=== PATIENT | male | born 1975 | race Two or more races ===

== ENCOUNTER 2022-11-16 17:27 | Inpatient (IN) | payer OTHER ==
[2022-11-16 20:27] VITALS: BMI 27.8
[2022-11-16] MEDS ORDERED: IBUPROFEN 400 MG TABLET (FP) PO PRN (20:55)
[2022-11-16] MEDS ORDERED: IBUPROFEN 600 MG TABLET (FP) PO PRN (20:55)
[2022-11-16] MEDS ORDERED: BENZOCAINE/MENTHOL (CHLORASEPTIC ) LOZENGE MM PRN (20:55)
[2022-11-16] MEDS ORDERED: BENZONATATE 200 MG CAPSULE PO PRN (20:55)
[2022-11-16] MEDS ORDERED: guaiFENesin 600 MG TABLET.ER (FP) PO PRN (20:55)
[2022-11-16] MEDS ORDERED: ACETAMINOPHEN 325 MG TABLET (FP) PO PRN (20:55)
[2022-11-16] MEDS ORDERED: MAG HYDROX/AL HYDROX/SIMETH 30 ML UNIT-DOSE CUP PO PRN (20:55)
[2022-11-16] MEDS ORDERED: DICYCLOMINE HCL 10 MG CAPSULE PO PRN (20:55)
[2022-11-16] MEDS ORDERED: BISMUTH SUBSALICYLATE 524 MG/30 ML PO PRN (20:55)
[2022-11-16] MEDS ORDERED: ONDANSETRON *ODT* 4 MG TABLET SL PRN (20:55)
[2022-11-16] MEDS ORDERED: LOPERAMIDE HCL 2 MG CAPSULE PO PRN (20:55)
[2022-11-16] MEDS ORDERED: POLYETHYLENE GLYCOL (HEALTHYLAX) 3350 17 GM PACKET PO PRN (20:55)
[2022-11-16] MEDS ORDERED: MAGNESIUM HYDROX 2400MG/30ML ORAL SUSPENSION 30 ML CUP PO PRN (20:55)
[2022-11-16] MEDS: MELATONIN 5 MG TABLETS PO SCH (23:29)
[2022-11-16] MEDS: THIAMINE HCL 100 MG TABLET (FP) PO SCH (23:29)
[2022-11-17] MEDS ORDERED: chlordiazePOXIDE HCL 25 MG CAPSULE PO PRN (09:20)
[2022-11-17] MEDS: hydrOXYzine PAMOATE 25 MG CAPSULE (FP) PO PRN (10:24)
[2022-11-17] MEDS: METHOCARBAMOL 500 MG TABLET PO PRN (10:24)
[2022-11-17] MEDS: chlordiazePOXIDE HCL 25 MG CAPSULE PO SCH ×3 (10:24→22:16)
[2022-11-17] MEDS: PRENATAL VITAMINS W/ FOLIC ACID TABLET (FP) PO SCH (10:24)
[2022-11-17] MEDS: THIAMINE HCL 100 MG TABLET (FP) PO SCH (22:16)
[2022-11-17] MEDS: MELATONIN 5 MG TABLETS PO SCH (22:16)
[2022-11-17] MEDS: QUEtiapine FUMARATE 50 MG TABLET PO SCH (22:17)
[2022-11-18] MEDS: chlordiazePOXIDE HCL 25 MG CAPSULE PO SCH ×4 (05:28→22:26)
[2022-11-18] MEDS: PRENATAL VITAMINS W/ FOLIC ACID TABLET (FP) PO SCH (10:28)
[2022-11-18 13:21] LABS: HEMATOCRIT 47.6 % (35.4-49); HEMOGLOBIN 16.6 GM/dL (11.7-16.9); MCH 33.8 pg (25.7-33.7); MCHC 34.8 g/dl (32.0-35.9); MEAN CELL VOLUME 97.3 fl (80-96); MEAN PLT VOLUME 7.7 fl (7.5-11.1); PLATELET COUNT 337 10^3/uL (134-434); RDW 12.4 % (11.9-15.9); WHITE BLOOD COUNT 7.8 K/mm3 (4.0-10.0)
[2022-11-18 13:37] LABS: BLOOD UREA NITROGEN 9.5 mg/dL (7-18); CALCIUM 8.7 mg/dL (8.5-10.1)
[2022-11-18 13:38] LABS: ALBUMIN 3.6 g/dl (3.4-5.0)
[2022-11-18 13:41] LABS: CREATININE 0.8 mg/dL (0.55-1.3)
[2022-11-18 13:42] LABS: BILIRUBIN,TOTAL 0.6 mg/dL (0.2-1)
[2022-11-18] MEDS: hydrOXYzine PAMOATE 25 MG CAPSULE (FP) PO PRN (22:25)
[2022-11-18] MEDS: MELATONIN 5 MG TABLETS PO SCH (22:25)
[2022-11-18] MEDS: THIAMINE HCL 100 MG TABLET (FP) PO SCH (22:25)
[2022-11-18] MEDS: QUEtiapine FUMARATE 50 MG TABLET PO SCH (22:26)
[2022-11-19] MEDS: chlordiazePOXIDE HCL 25 MG CAPSULE PO SCH ×4 (05:27→22:34)
[2022-11-19] MEDS: METHOCARBAMOL 500 MG TABLET PO PRN (10:18)
[2022-11-19] MEDS: PRENATAL VITAMINS W/ FOLIC ACID TABLET (FP) PO SCH (10:18)
[2022-11-19] MEDS: hydrOXYzine PAMOATE 25 MG CAPSULE (FP) PO PRN (10:19)
[2022-11-19] MEDS: QUEtiapine FUMARATE 50 MG TABLET PO SCH (22:34)
[2022-11-19] MEDS: THIAMINE HCL 100 MG TABLET (FP) PO SCH (22:34)
[2022-11-19] MEDS: MELATONIN 5 MG TABLETS PO SCH (22:34)
[2022-11-20] MEDS ORDERED: chlordiazePOXIDE HCL 10 MG CAPSULE PO PRN
[2022-11-20] MEDS: chlordiazePOXIDE HCL 10 MG CAPSULE PO SCH ×4 (05:41→22:20)
[2022-11-20] MEDS: METHOCARBAMOL 500 MG TABLET PO PRN (10:39)
[2022-11-20] MEDS: PRENATAL VITAMINS W/ FOLIC ACID TABLET (FP) PO SCH (10:39)
[2022-11-20] MEDS: hydrOXYzine PAMOATE 25 MG CAPSULE (FP) PO PRN (10:40)
[2022-11-20] MEDS: THIAMINE HCL 100 MG TABLET (FP) PO SCH (22:20)
[2022-11-20] MEDS: QUEtiapine FUMARATE 50 MG TABLET PO SCH (22:20)
[2022-11-20] MEDS: MELATONIN 5 MG TABLETS PO SCH (22:20)
[2022-11-21] MEDS: chlordiazePOXIDE HCL 10 MG CAPSULE PO SCH ×2 (05:23→17:29)
[2022-11-21 06:22] VITALS: RESP 18
[2022-11-21] MEDS: PRENATAL VITAMINS W/ FOLIC ACID TABLET (FP) PO SCH (10:13)
[2022-11-21] MEDS: hydrOXYzine PAMOATE 25 MG CAPSULE (FP) PO PRN ×2 (10:13→22:08)
[2022-11-21] MEDS: METHOCARBAMOL 500 MG TABLET PO PRN (10:13)
[2022-11-21] MEDS: MELATONIN 5 MG TABLETS PO SCH (22:08)
[2022-11-21] MEDS: QUEtiapine FUMARATE 50 MG TABLET PO SCH (22:08)
[2022-11-21] MEDS: THIAMINE HCL 100 MG TABLET (FP) PO SCH (22:08)
[2022-11-22] MEDS ORDERED: chlordiazePOXIDE HCL 10 MG CAPSULE PO ONE (05:00)
[2022-11-22] MEDS: PRENATAL VITAMINS W/ FOLIC ACID TABLET (FP) PO SCH (10:22)
[2022-11-22 13:12] VITALS: BP 131/68; PULSE 97; TEMP 98.1
== END 2022-11-22 13:45 | disposition other institution (70) | DRG 775 ==
LOC: YASAS 17:27 → Y6N 22:39 → UNDOADMIN 22:39
PROVIDERS: ADMIT Allergy & Immunology; ATTEND Surgery
PROC: HZ2ZZZZ Detoxification Services for Substance Abuse Treatment (ICD-10-PCS; principal; 2022-11-16)
DX: F10.230 Alcohol dependence with withdrawal, uncomplicated (principal); F10.282 Alcohol dependence with alcohol-induced sleep disorder; F10.24 Alcohol dependence with alcohol-induced mood disorder; F41.9 Anxiety disorder, unspecified; F32.A Depression, unspecified; Z87.891 Personal history of nicotine dependence; Z56.0 Unemployment, unspecified
CPT/HCPCS: 36415; 80053; 85027; 86780; 87811; C9803-CS; U0003; U0005

== ENCOUNTER 2022-11-22 13:32 | Inpatient (IN) | payer OTHER ==
[2022-11-22] MEDS ORDERED: IBUPROFEN 400 MG TABLET (FP) PO PRN (14:29)
[2022-11-22] MEDS ORDERED: MAGNESIUM HYDROX 2400MG/30ML ORAL SUSPENSION 30 ML CUP PO PRN (14:29)
[2022-11-22] MEDS ORDERED: MAG HYDROX/AL HYDROX/SIMETH 30 ML UNIT-DOSE CUP PO PRN (14:29)
[2022-11-22] MEDS ORDERED: NALOXONE HCL 0.4 MG/ML VIAL IVPUSH PRN (14:29)
[2022-11-22] MEDS ORDERED: IBUPROFEN 600 MG TABLET (FP) PO PRN (14:29)
[2022-11-22] MEDS ORDERED: LOPERAMIDE HCL 2 MG CAPSULE PO PRN (14:29)
[2022-11-22] MEDS ORDERED: NICOTINE 10 MG CARTRIDGE (INHALER) IH PRN (14:29)
[2022-11-22] MEDS ORDERED: NALOXONE HCL (KLOXXADO) 8 MG SPRAY NS PRN (14:29)
[2022-11-22] MEDS ORDERED: BENZOCAINE/MENTHOL (CHLORASEPTIC ) LOZENGE MM PRN (14:29)
[2022-11-22] MEDS ORDERED: ACETAMINOPHEN 325 MG TABLET (FP) PO PRN (14:29)
[2022-11-22] MEDS ORDERED: guaiFENesin 600 MG TABLET.ER (FP) PO PRN (14:29)
[2022-11-22] MEDS ORDERED: POLYETHYLENE GLYCOL (HEALTHYLAX) 3350 17 GM PACKET PO PRN (14:29)
[2022-11-22] MEDS ORDERED: BENZONATATE 200 MG CAPSULE PO PRN (14:29)
[2022-11-22] MEDS: MELATONIN 5 MG TABLETS PO SCH (21:17)
[2022-11-22] MEDS: risperiDONE 2 MG TABLET PO SCH (21:17)
[2022-11-22] MEDS: THIAMINE HCL 100 MG TABLET (FP) PO SCH (21:17)
[2022-11-22] MEDS ORDERED: QUEtiapine FUMARATE 50 MG TABLET PO SCH (22:00)
[2022-11-23] MEDS: risperiDONE 2 MG TABLET PO SCH ×2 (09:54→21:22)
[2022-11-23] MEDS: PRENATAL VITAMINS W/ FOLIC ACID TABLET (FP) PO SCH (09:54)
[2022-11-23] MEDS: METHOCARBAMOL 500 MG TABLET PO PRN (21:22)
[2022-11-23] MEDS: MELATONIN 5 MG TABLETS PO SCH (21:22)
[2022-11-23] MEDS: hydrOXYzine PAMOATE 25 MG CAPSULE (FP) PO PRN (21:22)
[2022-11-23] MEDS: THIAMINE HCL 100 MG TABLET (FP) PO SCH (21:22)
[2022-11-23] MEDS: QUEtiapine FUMARATE 50 MG TABLET PO SCH (21:23)
[2022-11-24] MEDS: risperiDONE 2 MG TABLET PO SCH ×2 (09:46→21:08)
[2022-11-24] MEDS: PRENATAL VITAMINS W/ FOLIC ACID TABLET (FP) PO SCH (09:47)
[2022-11-24] MEDS ORDERED: TUBERCULIN PPD 5 TU/0.1ML VIAL ID ONE (17:59)
[2022-11-24] MEDS: MELATONIN 5 MG TABLETS PO SCH (21:08)
[2022-11-24] MEDS: THIAMINE HCL 100 MG TABLET (FP) PO SCH (21:08)
[2022-11-24] MEDS: hydrOXYzine PAMOATE 25 MG CAPSULE (FP) PO PRN (21:08)
[2022-11-24] MEDS: METHOCARBAMOL 500 MG TABLET PO PRN (21:08)
[2022-11-24] MEDS: QUEtiapine FUMARATE 50 MG TABLET PO SCH (21:08)
[2022-11-25] MEDS: risperiDONE 2 MG TABLET PO SCH ×2 (10:18→21:22)
[2022-11-25] MEDS: PRENATAL VITAMINS W/ FOLIC ACID TABLET (FP) PO SCH (10:18)
[2022-11-25] MEDS: MELATONIN 5 MG TABLETS PO SCH (21:21)
[2022-11-25] MEDS: THIAMINE HCL 100 MG TABLET (FP) PO SCH (21:21)
[2022-11-25] MEDS: QUEtiapine FUMARATE 50 MG TABLET PO SCH (21:22)
[2022-11-25] MEDS: METHOCARBAMOL 500 MG TABLET PO PRN (21:22)
[2022-11-26] MEDS: PRENATAL VITAMINS W/ FOLIC ACID TABLET (FP) PO SCH (09:55)
[2022-11-26] MEDS: risperiDONE 2 MG TABLET PO SCH ×2 (09:55→21:18)
[2022-11-26] MEDS: THIAMINE HCL 100 MG TABLET (FP) PO SCH (21:17)
[2022-11-26] MEDS: MELATONIN 5 MG TABLETS PO SCH (21:17)
[2022-11-26] MEDS: QUEtiapine FUMARATE 50 MG TABLET PO SCH (21:18)
[2022-11-27] MEDS: risperiDONE 2 MG TABLET PO SCH ×2 (09:48→21:04)
[2022-11-27] MEDS: PRENATAL VITAMINS W/ FOLIC ACID TABLET (FP) PO SCH (09:48)
[2022-11-27] MEDS: MELATONIN 5 MG TABLETS PO SCH (21:04)
[2022-11-27] MEDS: QUEtiapine FUMARATE 50 MG TABLET PO SCH (21:04)
[2022-11-27] MEDS: METHOCARBAMOL 500 MG TABLET PO PRN (21:04)
[2022-11-27] MEDS: hydrOXYzine PAMOATE 25 MG CAPSULE (FP) PO PRN (21:04)
[2022-11-27] MEDS: THIAMINE HCL 100 MG TABLET (FP) PO SCH (21:04)
[2022-11-28] MEDS: risperiDONE 2 MG TABLET PO SCH ×2 (09:29→21:17)
[2022-11-28] MEDS: PRENATAL VITAMINS W/ FOLIC ACID TABLET (FP) PO SCH (09:29)
[2022-11-28] MEDS: THIAMINE HCL 100 MG TABLET (FP) PO SCH (21:17)
[2022-11-28] MEDS: QUEtiapine FUMARATE 50 MG TABLET PO SCH (21:17)
[2022-11-28] MEDS: MELATONIN 5 MG TABLETS PO SCH (21:17)
[2022-11-28] MEDS: hydrOXYzine PAMOATE 25 MG CAPSULE (FP) PO PRN (21:17)
[2022-11-29] MEDS: risperiDONE 2 MG TABLET PO SCH ×2 (09:34→21:25)
[2022-11-29] MEDS: PRENATAL VITAMINS W/ FOLIC ACID TABLET (FP) PO SCH (09:34)
[2022-11-29] MEDS ORDERED: QUEtiapine FUMARATE 25 MG TABLET ONE (19:26)
[2022-11-29] MEDS: hydrOXYzine PAMOATE 25 MG CAPSULE (FP) PO PRN (21:24)
[2022-11-29] MEDS: QUEtiapine FUMARATE 50 MG TABLET PO SCH (21:25)
[2022-11-29] MEDS: MELATONIN 5 MG TABLETS PO SCH (21:25)
[2022-11-29] MEDS: THIAMINE HCL 100 MG TABLET (FP) PO SCH (21:25)
[2022-11-30] MEDS: risperiDONE 2 MG TABLET PO SCH ×2 (09:41→21:12)
[2022-11-30] MEDS: PRENATAL VITAMINS W/ FOLIC ACID TABLET (FP) PO SCH (09:41)
[2022-11-30] MEDS: THIAMINE HCL 100 MG TABLET (FP) PO SCH (21:11)
[2022-11-30] MEDS: MELATONIN 5 MG TABLETS PO SCH (21:11)
[2022-11-30] MEDS: hydrOXYzine PAMOATE 25 MG CAPSULE (FP) PO PRN (21:12)
[2022-11-30] MEDS: QUEtiapine FUMARATE 50 MG TABLET PO SCH (21:12)
[2022-12-01] MEDS: PRENATAL VITAMINS W/ FOLIC ACID TABLET (FP) PO SCH (09:43)
[2022-12-01] MEDS: risperiDONE 2 MG TABLET PO SCH ×2 (09:44→21:28)
[2022-12-01] MEDS: MELATONIN 5 MG TABLETS PO SCH (21:28)
[2022-12-01] MEDS: THIAMINE HCL 100 MG TABLET (FP) PO SCH (21:28)
[2022-12-01] MEDS: QUEtiapine FUMARATE 50 MG TABLET PO SCH (21:28)
[2022-12-02] MEDS: risperiDONE 2 MG TABLET PO SCH ×2 (09:18→21:03)
[2022-12-02] MEDS: PRENATAL VITAMINS W/ FOLIC ACID TABLET (FP) PO SCH (09:18)
[2022-12-02] MEDS: THIAMINE HCL 100 MG TABLET (FP) PO SCH (21:03)
[2022-12-02] MEDS: MELATONIN 5 MG TABLETS PO SCH (21:03)
[2022-12-02] MEDS: QUEtiapine FUMARATE 50 MG TABLET PO SCH (21:03)
[2022-12-03] MEDS: risperiDONE 2 MG TABLET PO SCH ×2 (09:29→21:06)
[2022-12-03] MEDS: PRENATAL VITAMINS W/ FOLIC ACID TABLET (FP) PO SCH (09:29)
[2022-12-03] MEDS: QUEtiapine FUMARATE 50 MG TABLET PO SCH (21:06)
[2022-12-03] MEDS: THIAMINE HCL 100 MG TABLET (FP) PO SCH (21:06)
[2022-12-03] MEDS: MELATONIN 5 MG TABLETS PO SCH (21:06)
[2022-12-04] MEDS: risperiDONE 2 MG TABLET PO SCH ×2 (10:11→21:25)
[2022-12-04] MEDS: PRENATAL VITAMINS W/ FOLIC ACID TABLET (FP) PO SCH (10:11)
[2022-12-04] MEDS: QUEtiapine FUMARATE 50 MG TABLET PO SCH (21:25)
[2022-12-04] MEDS: MELATONIN 5 MG TABLETS PO SCH (21:25)
[2022-12-04] MEDS: THIAMINE HCL 100 MG TABLET (FP) PO SCH (21:25)
[2022-12-04] MEDS: hydrOXYzine PAMOATE 25 MG CAPSULE (FP) PO PRN (21:25)
[2022-12-05 07:07] VITALS: BP 102/63; PULSE 88; RESP 18; TEMP 97.9
[2022-12-05] MEDS: PRENATAL VITAMINS W/ FOLIC ACID TABLET (FP) PO SCH (09:21)
[2022-12-05] MEDS: risperiDONE 2 MG TABLET PO SCH (09:21)
== END 2022-12-05 11:35 | disposition home or self-care (01) | DRG 772 ==
LOC: YASAS 13:32 → Y3E 13:34
PROVIDERS: ADMIT Allergy & Immunology; ATTEND Psychiatry & Neurology Pain Medicine
PROC: HZ42ZZZ Group Counseling for Substance Abuse Treatment, Cognitive-Behavioral (ICD-10-PCS; principal; 2022-11-22)
DX: F10.20 Alcohol dependence, uncomplicated (principal); F32.A Depression, unspecified
CPT/HCPCS: 36415; 86803

== ENCOUNTER 2022-12-18 20:34 | Inpatient (IN) | payer OTHER ==
[2022-12-18 22:14] VITALS: BMI 26.4
[2022-12-19] MEDS ORDERED: POLYETHYLENE GLYCOL (HEALTHYLAX) 3350 17 GM PACKET PO PRN (01:33)
[2022-12-19] MEDS ORDERED: DICYCLOMINE HCL 10 MG CAPSULE PO PRN (01:33)
[2022-12-19] MEDS ORDERED: ACETAMINOPHEN 325 MG TABLET (FP) PO PRN (01:33)
[2022-12-19] MEDS ORDERED: BENZOCAINE/MENTHOL (CHLORASEPTIC ) LOZENGE MM PRN (01:33)
[2022-12-19] MEDS ORDERED: LOPERAMIDE HCL 2 MG CAPSULE PO PRN (01:33)
[2022-12-19] MEDS ORDERED: ONDANSETRON *ODT* 4 MG TABLET SL PRN (01:33)
[2022-12-19] MEDS ORDERED: MAGNESIUM HYDROX 2400MG/30ML ORAL SUSPENSION 30 ML CUP PO PRN (01:33)
[2022-12-19] MEDS ORDERED: hydrOXYzine PAMOATE 25 MG CAPSULE (FP) PO PRN (01:33)
[2022-12-19] MEDS ORDERED: BENZONATATE 200 MG CAPSULE PO PRN (01:33)
[2022-12-19] MEDS ORDERED: BISMUTH SUBSALICYLATE 524 MG/30 ML PO PRN (01:33)
[2022-12-19] MEDS ORDERED: IBUPROFEN 400 MG TABLET (FP) PO PRN (01:33)
[2022-12-19] MEDS ORDERED: MAG HYDROX/AL HYDROX/SIMETH 30 ML UNIT-DOSE CUP PO PRN (01:33)
[2022-12-19] MEDS ORDERED: NALOXONE HCL 0.4 MG/ML VIAL IM PRN (01:33)
[2022-12-19] MEDS ORDERED: METHOCARBAMOL 500 MG TABLET PO PRN (01:33)
[2022-12-19] MEDS ORDERED: guaiFENesin 600 MG TABLET.ER (FP) PO PRN (01:33)
[2022-12-19] MEDS ORDERED: NALOXONE HCL (KLOXXADO) 8 MG SPRAY NS PRN (01:33)
[2022-12-19] MEDS ORDERED: NICOTINE 10 MG CARTRIDGE (INHALER) IH PRN (01:33)
[2022-12-19] MEDS ORDERED: IBUPROFEN 600 MG TABLET (FP) PO PRN (01:33)
[2022-12-19] MEDS: PRENATAL VITAMINS W/ FOLIC ACID TABLET (FP) PO SCH (10:17)
[2022-12-19] MEDS ORDERED: THIAMINE HCL 100 MG TABLET (FP) PO SCH (22:00)
[2022-12-19] MEDS ORDERED: MELATONIN 5 MG TABLETS PO SCH (22:00)
[2022-12-19] MEDS: risperiDONE 1 MG TABLET PO SCH (23:13)
[2022-12-20 06:38] VITALS: BP 112/73; PULSE 85; RESP 16; TEMP 97.8
[2022-12-20] MEDS: risperiDONE 1 MG TABLET PO SCH (10:43)
[2022-12-20] MEDS: PRENATAL VITAMINS W/ FOLIC ACID TABLET (FP) PO SCH (10:43)
[2022-12-20 11:03] LABS: POTASSIUM 4.9 mmol/L (3.5-5.1)
[2022-12-20 11:05] LABS: BLOOD UREA NITROGEN 9.2 mg/dL (7-18); CALCIUM 9.1 mg/dL (8.5-10.1)
[2022-12-20 11:06] LABS: ALBUMIN 3.7 g/dl (3.4-5.0)
[2022-12-20 11:08] LABS: CREATININE 0.8 mg/dL (0.55-1.3)
[2022-12-20 11:10] LABS: BILIRUBIN,TOTAL 0.7 mg/dL (0.2-1); TOT PROT 7.5 g/dl (6.4-8.2)
[2022-12-20 11:17] LABS: MCH 32.6 pg (25.7-33.7); MCHC 34.8 g/dl (32.0-35.9); MEAN CELL VOLUME 93.9 fl (80-96); MEAN PLT VOLUME 7.2 fl (7.5-11.1); PLATELET COUNT 439 10^3/uL (134-434); RBC 5.22 M/mm3 (4.00-5.60); RDW 12.1 % (11.9-15.9); WHITE BLOOD COUNT 6.6 K/mm3 (4.0-10.0)
== END 2022-12-20 10:55 | disposition home or self-care (01) | DRG 775 ==
LOC: YASAS 20:34 → Y6N 12-19 02:45 → UNDOADMIN 12-19 02:45 → UNDODISIN 12-20 10:55
PROVIDERS: ADMIT Allergy & Immunology; ATTEND Surgery
PROC: HZ2ZZZZ Detoxification Services for Substance Abuse Treatment (ICD-10-PCS; principal; 2022-12-19)
DX: F10.230 Alcohol dependence with withdrawal, uncomplicated (principal); F20.9 Schizophrenia, unspecified; F41.9 Anxiety disorder, unspecified; Z87.891 Personal history of nicotine dependence; Z86.59 Personal history of other mental and behavioral disorders
CPT/HCPCS: 36415; 80053; 85027; 86780; 93005; 93010

== ENCOUNTER 2023-01-20 17:40 | Inpatient (IN) | payer OTHER ==
[2023-01-20 18:39] VITALS: BMI 27.8
[2023-01-20] MEDS ORDERED: ONDANSETRON *ODT* 4 MG TABLET SL PRN (20:53)
[2023-01-20] MEDS ORDERED: LOPERAMIDE HCL 2 MG CAPSULE PO PRN (20:53)
[2023-01-20] MEDS ORDERED: NALOXONE HCL (KLOXXADO) 8 MG SPRAY NS PRN (20:53)
[2023-01-20] MEDS ORDERED: guaiFENesin 600 MG TABLET.ER (FP) PO PRN (20:53)
[2023-01-20] MEDS ORDERED: MAGNESIUM HYDROX 2400MG/30ML ORAL SUSPENSION 30 ML CUP PO PRN (20:53)
[2023-01-20] MEDS ORDERED: NALOXONE HCL 0.4 MG/ML VIAL IM PRN (20:53)
[2023-01-20] MEDS ORDERED: IBUPROFEN 600 MG TABLET (FP) PO PRN (20:53)
[2023-01-20] MEDS ORDERED: BISMUTH SUBSALICYLATE 524 MG/30 ML PO PRN (20:53)
[2023-01-20] MEDS ORDERED: ACETAMINOPHEN 325 MG TABLET (FP) PO PRN (20:53)
[2023-01-20] MEDS ORDERED: BENZONATATE 200 MG CAPSULE PO PRN (20:53)
[2023-01-20] MEDS ORDERED: DICYCLOMINE HCL 10 MG CAPSULE PO PRN (20:53)
[2023-01-20] MEDS ORDERED: chlordiazePOXIDE HCL 25 MG CAPSULE PO PRN (20:53)
[2023-01-20] MEDS ORDERED: BENZOCAINE/MENTHOL (CHLORASEPTIC ) LOZENGE MM PRN (20:53)
[2023-01-20] MEDS ORDERED: MAG HYDROX/AL HYDROX/SIMETH 30 ML UNIT-DOSE CUP PO PRN (20:53)
[2023-01-20] MEDS ORDERED: POLYETHYLENE GLYCOL (HEALTHYLAX) 3350 17 GM PACKET PO PRN (20:53)
[2023-01-20] MEDS ORDERED: IBUPROFEN 400 MG TABLET (FP) PO PRN (20:53)
[2023-01-20] MEDS ORDERED: MELATONIN 5 MG TABLETS ONE (22:54)
[2023-01-20] MEDS ORDERED: chlordiazePOXIDE HCL 25 MG CAPSULE ONE (22:54)
[2023-01-20] MEDS: MELATONIN 5 MG TABLETS PO SCH (22:58)
[2023-01-20] MEDS: chlordiazePOXIDE HCL 25 MG CAPSULE PO SCH (22:58)
[2023-01-20] MEDS: THIAMINE HCL 100 MG TABLET (FP) PO SCH (23:27)
[2023-01-21] MEDS: chlordiazePOXIDE HCL 25 MG CAPSULE PO SCH ×4 (05:38→22:08)
[2023-01-21] MEDS: PRENATAL VITAMINS W/ FOLIC ACID TABLET (FP) PO SCH (10:32)
[2023-01-21 11:48] LABS: POTASSIUM 4.6 mmol/L (3.5-5.1)
[2023-01-21 11:55] LABS: CALCIUM 9.3 mg/dL (8.5-10.1)
[2023-01-21 11:56] LABS: ALBUMIN 3.8 g/dl (3.4-5.0); BLOOD UREA NITROGEN 8.5 mg/dL (7-18)
[2023-01-21 11:59] LABS: CREATININE 0.9 mg/dL (0.55-1.3)
[2023-01-21 12:01] LABS: BILIRUBIN,TOTAL 1.4 mg/dL (0.2-1); TOT PROT 7.4 g/dl (6.4-8.2)
[2023-01-21 12:22] LABS: HEMATOCRIT 47.3 % (35.4-49); HEMOGLOBIN 16.2 GM/dL (11.7-16.9); MCH 32.5 pg (25.7-33.7); MCHC 34.2 g/dl (32.0-35.9); MEAN PLT VOLUME 7.2 fl (7.5-11.1); PLATELET COUNT 354 10^3/uL (134-434); RBC 4.98 M/mm3 (4.00-5.60); RDW 13.3 % (11.9-15.9); WHITE BLOOD COUNT 6.6 K/mm3 (4.0-10.0)
[2023-01-21] MEDS: THIAMINE HCL 100 MG TABLET (FP) PO SCH (22:08)
[2023-01-21] MEDS: MELATONIN 5 MG TABLETS PO SCH (22:08)
[2023-01-22] MEDS: chlordiazePOXIDE HCL 25 MG CAPSULE PO SCH ×4 (06:00→17:19)
[2023-01-22] MEDS: PRENATAL VITAMINS W/ FOLIC ACID TABLET (FP) PO SCH (10:05)
[2023-01-22] MEDS: MELATONIN 5 MG TABLETS PO SCH (22:37)
[2023-01-22] MEDS: THIAMINE HCL 100 MG TABLET (FP) PO SCH (22:37)
[2023-01-23] MEDS ORDERED: chlordiazePOXIDE HCL 10 MG CAPSULE PO PRN
[2023-01-23] MEDS: chlordiazePOXIDE HCL 10 MG CAPSULE PO SCH ×4 (05:11→22:05)
[2023-01-23] MEDS: PRENATAL VITAMINS W/ FOLIC ACID TABLET (FP) PO SCH (10:56)
[2023-01-23] MEDS: MELATONIN 5 MG TABLETS PO SCH (22:04)
[2023-01-23] MEDS: THIAMINE HCL 100 MG TABLET (FP) PO SCH (22:06)
[2023-01-24] MEDS: chlordiazePOXIDE HCL 10 MG CAPSULE PO SCH ×2 (06:02→17:20)
[2023-01-24] MEDS: PRENATAL VITAMINS W/ FOLIC ACID TABLET (FP) PO SCH (10:16)
[2023-01-24 20:57] VITALS: RESP 18; TEMP 97.3
[2023-01-24] MEDS: MELATONIN 5 MG TABLETS PO SCH (22:30)
[2023-01-24] MEDS: THIAMINE HCL 100 MG TABLET (FP) PO SCH (22:30)
[2023-01-25] MEDS ORDERED: chlordiazePOXIDE HCL 10 MG CAPSULE PO ONE (05:00)
[2023-01-25 05:45] VITALS: BP 108/65; PULSE 93
== END 2023-01-25 09:09 | disposition home or self-care (01) | DRG 775 ==
LOC: YASAS 17:40 → Y6N 22:20
PROVIDERS: ADMIT Allergy & Immunology; ATTEND Surgery
PROC: HZ2ZZZZ Detoxification Services for Substance Abuse Treatment (ICD-10-PCS; principal; 2023-01-21)
DX: F10.230 Alcohol dependence with withdrawal, uncomplicated (principal); F10.282 Alcohol dependence with alcohol-induced sleep disorder; F32.A Depression, unspecified; R73.9 Hyperglycemia, unspecified; R74.8 Abnormal levels of other serum enzymes
CPT/HCPCS: 36415; 80053; 82247; 82947; 82962; 83036; 84450; 85027; 86780; 87811; C9803-CS; U0003; U0005

== ENCOUNTER 2023-03-26 17:55 | Inpatient (IN) | payer OTHER ==
[2023-03-26 19:19] VITALS: BMI 27.8
[2023-03-26] MEDS ORDERED: NALOXONE HCL (KLOXXADO) 8 MG SPRAY NS PRN (21:55)
[2023-03-26] MEDS ORDERED: LOPERAMIDE HCL 2 MG CAPSULE PO PRN (21:55)
[2023-03-26] MEDS ORDERED: POLYETHYLENE GLYCOL (HEALTHYLAX) 3350 17 GM PACKET PO PRN (21:55)
[2023-03-26] MEDS ORDERED: BENZONATATE 200 MG CAPSULE PO PRN (21:55)
[2023-03-26] MEDS ORDERED: BISMUTH SUBSALICYLATE 524 MG/30 ML PO PRN (21:55)
[2023-03-26] MEDS ORDERED: ACETAMINOPHEN 325 MG TABLET (FP) PO PRN (21:55)
[2023-03-26] MEDS ORDERED: MAG HYDROX/AL HYDROX/SIMETH 30 ML UNIT-DOSE CUP PO PRN (21:55)
[2023-03-26] MEDS ORDERED: IBUPROFEN 400 MG TABLET (FP) PO PRN (21:55)
[2023-03-26] MEDS ORDERED: ONDANSETRON *ODT* 4 MG TABLET SL PRN (21:55)
[2023-03-26] MEDS ORDERED: NALOXONE HCL 0.4 MG/ML VIAL IM PRN (21:55)
[2023-03-26] MEDS ORDERED: MAGNESIUM HYDROX 2400MG/30ML ORAL SUSPENSION 30 ML CUP PO PRN (21:55)
[2023-03-26] MEDS ORDERED: DICYCLOMINE HCL 10 MG CAPSULE PO PRN (21:55)
[2023-03-26] MEDS ORDERED: IBUPROFEN 600 MG TABLET (FP) PO PRN (21:55)
[2023-03-26] MEDS ORDERED: guaiFENesin 600 MG TABLET.ER (FP) PO PRN (21:55)
[2023-03-26] MEDS ORDERED: BENZOCAINE/MENTHOL (CHLORASEPTIC ) LOZENGE MM PRN (21:55)
[2023-03-26] MEDS: MELATONIN 5 MG TABLETS PO SCH (23:06)
[2023-03-26] MEDS: THIAMINE HCL 100 MG TABLET (FP) PO SCH (23:06)
[2023-03-27] MEDS: PRENATAL VITAMINS W/ FOLIC ACID TABLET (FP) PO SCH (10:08)
[2023-03-27 10:13] LABS: POTASSIUM 4.4 mmol/L (3.5-5.1)
[2023-03-27 10:16] LABS: HEMATOCRIT 50.2 % (35.4-49); HEMOGLOBIN 17.3 GM/dL (11.7-16.9); MCH 33.3 pg (25.7-33.7); MCHC 34.4 g/dl (32.0-35.9); MEAN CELL VOLUME 96.7 fl (80-96); MEAN PLT VOLUME 7.8 fl (7.5-11.1); PLATELET COUNT 320 10^3/uL (134-434); RBC 5.18 M/mm3 (4.00-5.60); RDW 13.6 % (11.9-15.9); WHITE BLOOD COUNT 7.2 K/mm3 (4.0-10.0)
[2023-03-27 10:26] LABS: CALCIUM 9.5 mg/dL (8.5-10.1)
[2023-03-27 10:27] LABS: BLOOD UREA NITROGEN 8.2 mg/dL (7-18)
[2023-03-27 10:32] LABS: TOT PROT 7.6 g/dl (6.4-8.2)
[2023-03-27 10:33] LABS: CREATININE 0.8 mg/dL (0.55-1.3)
[2023-03-27 10:34] LABS: BILIRUBIN,TOTAL 1.1 mg/dL (0.2-1)
[2023-03-27] MEDS ORDERED: PNEUMOC 20-VAL CONJ-DIP CRM/PF 0.5 ML SYRINGE IM ONE (12:00)
[2023-03-27] MEDS: hydrOXYzine PAMOATE 25 MG CAPSULE (FP) PO PRN (22:11)
[2023-03-27] MEDS: THIAMINE HCL 100 MG TABLET (FP) PO SCH (22:11)
[2023-03-27] MEDS: MELATONIN 5 MG TABLETS PO SCH (22:11)
[2023-03-27] MEDS: METHOCARBAMOL 500 MG TABLET PO PRN (22:11)
[2023-03-28] MEDS ORDERED: chlordiazePOXIDE HCL 10 MG CAPSULE PO PRN
[2023-03-28] MEDS: PRENATAL VITAMINS W/ FOLIC ACID TABLET (FP) PO SCH (10:09)
[2023-03-28] MEDS: chlordiazePOXIDE HCL 25 MG CAPSULE PO SCH ×3 (10:09→22:09)
[2023-03-28] MEDS: THIAMINE HCL 100 MG TABLET (FP) PO SCH (22:08)
[2023-03-28] MEDS: MELATONIN 5 MG TABLETS PO SCH (22:08)
[2023-03-28] MEDS: METHOCARBAMOL 500 MG TABLET PO PRN (22:09)
[2023-03-28] MEDS: hydrOXYzine PAMOATE 25 MG CAPSULE (FP) PO PRN (22:09)
[2023-03-29] MEDS: chlordiazePOXIDE HCL 10 MG CAPSULE PO SCH ×4 (05:34→22:07)
[2023-03-29] MEDS: PRENATAL VITAMINS W/ FOLIC ACID TABLET (FP) PO SCH (10:03)
[2023-03-29] MEDS: METHOCARBAMOL 500 MG TABLET PO PRN (22:06)
[2023-03-29] MEDS: MELATONIN 5 MG TABLETS PO SCH (22:06)
[2023-03-29] MEDS: THIAMINE HCL 100 MG TABLET (FP) PO SCH (22:06)
[2023-03-29] MEDS: hydrOXYzine PAMOATE 25 MG CAPSULE (FP) PO PRN (22:06)
[2023-03-30] MEDS: chlordiazePOXIDE HCL 10 MG CAPSULE PO SCH ×2 (05:31→17:20)
[2023-03-30] MEDS: PRENATAL VITAMINS W/ FOLIC ACID TABLET (FP) PO SCH (10:24)
[2023-03-30 11:23] LABS: BASO % 0.8 % (0-2.0); EOS % 2.2 % (0-4.5); HEMOGLOBIN 17.2 GM/dL (11.7-16.9); LYMPH % 19.7 % (8-40); MCH 33.3 pg (25.7-33.7); MCHC 34.4 g/dl (32.0-35.9); MEAN CELL VOLUME 96.9 fl (80-96); MEAN PLT VOLUME 8.1 fl (7.5-11.1); MONO % 10.8 % (3.8-10.2); NEUT % 66.5 % (42.8-82.8); PLATELET COUNT 328 10^3/uL (134-434); RBC 5.16 M/mm3 (4.00-5.60); RDW 12.9 % (11.9-15.9); WHITE BLOOD COUNT 7.7 K/mm3 (4.0-10.0)
[2023-03-30 17:08] VITALS: RESP 18
[2023-03-30] MEDS: MELATONIN 5 MG TABLETS PO SCH (22:11)
[2023-03-30] MEDS: METHOCARBAMOL 500 MG TABLET PO PRN (22:12)
[2023-03-30] MEDS: THIAMINE HCL 100 MG TABLET (FP) PO SCH (22:12)
[2023-03-30] MEDS: hydrOXYzine PAMOATE 25 MG CAPSULE (FP) PO PRN (22:12)
[2023-03-31] MEDS ORDERED: chlordiazePOXIDE HCL 10 MG CAPSULE PO ONE (05:00)
[2023-03-31 08:48] VITALS: BP 142/89; PULSE 91; TEMP 97.1
== END 2023-03-31 09:04 | disposition home or self-care (01) | DRG 775 ==
LOC: YASAS 17:55 → Y3N 22:35
PROVIDERS: ADMIT Allergy & Immunology; ATTEND Surgery
PROC: HZ2ZZZZ Detoxification Services for Substance Abuse Treatment (ICD-10-PCS; principal; 2023-03-26)
DX: F10.230 Alcohol dependence with withdrawal, uncomplicated (principal); F25.9 Schizoaffective disorder, unspecified; G47.00 Insomnia, unspecified; R74.8 Abnormal levels of other serum enzymes; Z87.891 Personal history of nicotine dependence; Z91.148 Patient's other noncompliance with medication regimen for other reason; Z56.0 Unemployment, unspecified
CPT/HCPCS: 36415; 80053; 85025; 85027; 86780; 87635; 87811; 90677

== ENCOUNTER 2023-09-20 20:07 | Inpatient (IN) | payer OTHER ==
[2023-09-20 20:34] VITALS: BMI 24.3
[2023-09-20] MEDS ORDERED: BISMUTH SUBSALICYLATE 524 MG/30 ML PO PRN (21:38)
[2023-09-20] MEDS ORDERED: guaiFENesin 600 MG TABLET.ER (FP) PO PRN (21:38)
[2023-09-20] MEDS ORDERED: BENZOCAINE/MENTHOL (CHLORASEPTIC ) LOZENGE MM PRN (21:38)
[2023-09-20] MEDS ORDERED: ACETAMINOPHEN 325 MG TABLET (FP) PO PRN (21:38)
[2023-09-20] MEDS ORDERED: NALOXONE HCL 0.4 MG/ML VIAL IM PRN (21:38)
[2023-09-20] MEDS ORDERED: MAG HYDROX/AL HYDROX/SIMETH 30 ML UNIT-DOSE CUP PO PRN (21:38)
[2023-09-20] MEDS ORDERED: POLYETHYLENE GLYCOL (HEALTHYLAX) 3350 17 GM PACKET PO PRN (21:38)
[2023-09-20] MEDS ORDERED: ONDANSETRON *ODT* 4 MG TABLET SL PRN (21:38)
[2023-09-20] MEDS ORDERED: MAGNESIUM HYDROX 2400MG/30ML ORAL SUSPENSION 30 ML CUP PO PRN (21:38)
[2023-09-20] MEDS ORDERED: NALOXONE HCL (KLOXXADO) 8 MG SPRAY NS PRN (21:38)
[2023-09-20] MEDS ORDERED: NICOTINE POLACRILEX 2 MG LOZENGE BC PRN (21:38)
[2023-09-20] MEDS ORDERED: IBUPROFEN 400 MG TABLET (FP) PO PRN (21:38)
[2023-09-20] MEDS ORDERED: DICYCLOMINE HCL 10 MG CAPSULE PO PRN (21:38)
[2023-09-20] MEDS ORDERED: BENZONATATE 200 MG CAPSULE PO PRN (21:38)
[2023-09-20] MEDS ORDERED: IBUPROFEN 600 MG TABLET (FP) PO PRN (21:38)
[2023-09-20] MEDS ORDERED: LOPERAMIDE HCL 2 MG CAPSULE PO PRN (21:38)
[2023-09-20] MEDS: MELATONIN 5 MG TABLETS PO SCH (21:53)
[2023-09-20] MEDS: THIAMINE HCL 100 MG TABLET (FP) PO SCH (21:54)
[2023-09-20] MEDS: hydrOXYzine PAMOATE 25 MG CAPSULE (FP) PO PRN (21:54)
[2023-09-21] MEDS ORDERED: diazePAM 5 MG TABLET PO PRN (10:02)
[2023-09-21] MEDS: PRENATAL VITAMINS W/ FOLIC ACID TABLET (FP) PO SCH (10:34)
[2023-09-21] MEDS: METHOCARBAMOL 500 MG TABLET PO PRN (10:34)
[2023-09-21] MEDS: hydrOXYzine PAMOATE 25 MG CAPSULE (FP) PO PRN (10:34)
[2023-09-21] MEDS: NICOTINE 14 MG/24 HOURS TOPICAL PATCH TD SCH (10:44)
[2023-09-21] MEDS ORDERED: diazePAM 5 MG TABLET PO SCH (11:00)
[2023-09-21 11:42] LABS: CHLORIDE 106 mmol/L (98-107); POTASSIUM 4.7 mmol/L (3.5-5.1); SODIUM 142 mmol/L (136-145)
[2023-09-21 11:46] LABS: HEMATOCRIT 50.9 % (35.4-49); HEMOGLOBIN 17.1 GM/dL (11.7-16.9); MCH 33.3 pg (25.7-33.7); MCHC 33.7 g/dl (32.0-35.9); MEAN CELL VOLUME 98.8 fl (80-96); MEAN PLT VOLUME 7.5 fl (7.5-11.1); PLATELET COUNT 330 10^3/uL (134-434); RBC 5.15 M/mm3 (4.00-5.60); RDW 12.7 % (11.9-15.9); WHITE BLOOD COUNT 5.8 K/mm3 (4.0-10.0)
[2023-09-21 11:58] LABS: BLOOD UREA NITROGEN 9.1 mg/dL (7-18)
[2023-09-21 11:59] LABS: ANION GAP 6 mmol/L (4-13); CO2 30 mmol/L (21-32)
[2023-09-21 12:01] LABS: SGPT/ALT 73 U/L (13-61)
[2023-09-21 12:02] LABS: ALBUMIN 3.7 g/dl (3.4-5.0); CALCIUM 9.4 mg/dL (8.5-10.1); GLUCOSE,RANDOM 86 mg/dL (74-106); SGOT/AST 36 U/L (15-37)
[2023-09-21 12:03] LABS: BILIRUBIN,TOTAL 0.6 mg/dL (0.2-1); CREATININE 0.8 mg/dL (0.55-1.3); TOT PROT 7.2 g/dl (6.4-8.2)
[2023-09-21 12:05] LABS: ALK PHOS 65 U/L (45-117)
[2023-09-21] MEDS: diazePAM 5 MG TABLET PO SCH ×2 (17:25→22:08)
[2023-09-21] MEDS: THIAMINE HCL 100 MG TABLET (FP) PO SCH (22:08)
[2023-09-21] MEDS: MELATONIN 5 MG TABLETS PO SCH (22:09)
[2023-09-22] MEDS: diazePAM 5 MG TABLET PO SCH ×2 (05:27→17:09)
[2023-09-22] MEDS: PRENATAL VITAMINS W/ FOLIC ACID TABLET (FP) PO SCH (10:19)
[2023-09-22] MEDS: hydrOXYzine PAMOATE 25 MG CAPSULE (FP) PO PRN ×2 (10:20→22:11)
[2023-09-22] MEDS: METHOCARBAMOL 500 MG TABLET PO PRN ×2 (10:20→22:11)
[2023-09-22] MEDS: NICOTINE 14 MG/24 HOURS TOPICAL PATCH TD SCH ×2 (10:21)
[2023-09-22] MEDS: MELATONIN 5 MG TABLETS PO SCH (22:10)
[2023-09-22] MEDS: THIAMINE HCL 100 MG TABLET (FP) PO SCH (22:10)
[2023-09-23] MEDS ORDERED: diazePAM 5 MG TABLET PO ONE (06:00)
[2023-09-23] MEDS: NICOTINE 14 MG/24 HOURS TOPICAL PATCH TD SCH (10:08)
[2023-09-23] MEDS: PRENATAL VITAMINS W/ FOLIC ACID TABLET (FP) PO SCH (10:08)
[2023-09-23] MEDS: THIAMINE HCL 100 MG TABLET (FP) PO SCH (22:25)
[2023-09-23] MEDS: MELATONIN 5 MG TABLETS PO SCH (22:26)
[2023-09-23] MEDS: hydrOXYzine PAMOATE 25 MG CAPSULE (FP) PO PRN (22:26)
[2023-09-24] MEDS: NICOTINE 14 MG/24 HOURS TOPICAL PATCH TD SCH (10:28)
[2023-09-24] MEDS: PRENATAL VITAMINS W/ FOLIC ACID TABLET (FP) PO SCH (10:28)
[2023-09-24 10:47] VITALS: BP 112/65; PULSE 86; RESP 16; TEMP 98.4
== END 2023-09-24 11:30 | disposition other institution (70) | DRG 775 ==
LOC: YASAS 20:07 → Y6N 21:27
PROVIDERS: ADMIT Allergy & Immunology; ATTEND Allergy & Immunology
PROC: HZ2ZZZZ Detoxification Services for Substance Abuse Treatment (ICD-10-PCS; principal; 2023-09-20)
DX: F10.230 Alcohol dependence with withdrawal, uncomplicated (principal); F17.210 Nicotine dependence, cigarettes, uncomplicated; F32.A Depression, unspecified; Z91.81 History of falling
CPT/HCPCS: 36415; 80053; 80307; 85027; 86780; 87635

== ENCOUNTER 2023-09-24 11:41 | Inpatient (IN) | payer OTHER ==
[~2023-09-24 11:41] MED LIST: ACETAMINOPHEN 325 MG TABLET (FP) PO PRN; BENZOCAINE/MENTHOL (CHLORASEPTIC ) LOZENGE MM PRN; BENZONATATE 200 MG CAPSULE PO PRN; IBUPROFEN 400 MG TABLET (FP) PO PRN; IBUPROFEN 600 MG TABLET (FP) PO PRN; LOPERAMIDE HCL 2 MG CAPSULE PO PRN; MAG HYDROX/AL HYDROX/SIMETH 30 ML UNIT-DOSE CUP PO PRN; MAGNESIUM HYDROX 2400MG/30ML ORAL SUSPENSION 30 ML CUP PO PRN; METHOCARBAMOL 500 MG TABLET PO PRN; NALOXONE HCL (KLOXXADO) 8 MG SPRAY NS PRN; NALOXONE HCL 0.4 MG/ML VIAL IVPUSH PRN; NICOTINE POLACRILEX 2 MG GUM BUC PRN; POLYETHYLENE GLYCOL (HEALTHYLAX) 3350 17 GM PACKET PO PRN; guaiFENesin 600 MG TABLET.ER (FP) PO PRN; hydrOXYzine PAMOATE 25 MG CAPSULE (FP) PO PRN
[2023-09-24] MEDS: THIAMINE HCL 100 MG TABLET (FP) PO SCH ×2 (13:55→21:15)
[2023-09-24] MEDS: NICOTINE 14 MG/24 HOURS TOPICAL PATCH TD SCH (13:55)
[2023-09-24] MEDS: MELATONIN 5 MG TABLETS PO SCH ×2 (13:55→21:15)
[2023-09-24] MEDS: PRENATAL VITAMINS W/ FOLIC ACID TABLET (FP) PO SCH (13:56)
[2023-09-24] MEDS ORDERED: NALTREXONE HCL 50 MG TABLET PO SCH (15:00)
[2023-09-25] MEDS: PRENATAL VITAMINS W/ FOLIC ACID TABLET (FP) PO SCH (10:06)
[2023-09-25] MEDS: NALTREXONE HCL 50 MG TABLET PO SCH (10:06)
[2023-09-25] MEDS: NICOTINE 14 MG/24 HOURS TOPICAL PATCH TD SCH (10:07)
[2023-09-25] MEDS: THIAMINE HCL 100 MG TABLET (FP) PO SCH (21:14)
[2023-09-25] MEDS: MELATONIN 5 MG TABLETS PO SCH (21:14)
[2023-09-26] MEDS: PRENATAL VITAMINS W/ FOLIC ACID TABLET (FP) PO SCH (10:01)
[2023-09-26] MEDS: NALTREXONE HCL 50 MG TABLET PO SCH (10:01)
[2023-09-26] MEDS: NICOTINE 14 MG/24 HOURS TOPICAL PATCH TD SCH (10:01)
[2023-09-26] MEDS: THIAMINE HCL 100 MG TABLET (FP) PO SCH (21:05)
[2023-09-26] MEDS: MELATONIN 5 MG TABLETS PO SCH (21:05)
[2023-09-27] MEDS: PRENATAL VITAMINS W/ FOLIC ACID TABLET (FP) PO SCH (09:39)
[2023-09-27] MEDS: NICOTINE 14 MG/24 HOURS TOPICAL PATCH TD SCH (09:39)
[2023-09-27] MEDS: NALTREXONE HCL 50 MG TABLET PO SCH (10:55)
[2023-09-27] MEDS: MELATONIN 5 MG TABLETS PO SCH (21:04)
[2023-09-27] MEDS: THIAMINE HCL 100 MG TABLET (FP) PO SCH (21:04)
[2023-09-28] MEDS: PRENATAL VITAMINS W/ FOLIC ACID TABLET (FP) PO SCH (10:16)
[2023-09-28] MEDS: NALTREXONE HCL 50 MG TABLET PO SCH (10:16)
[2023-09-28] MEDS: NICOTINE 14 MG/24 HOURS TOPICAL PATCH TD SCH (10:16)
[2023-09-28] MEDS: LACTULOSE 20 GM/30 ML UDC (FOR ORAL USE ONLY) PO SCH ×2 (14:18→21:07)
[2023-09-28] MEDS: MELATONIN 5 MG TABLETS PO SCH (21:07)
[2023-09-28] MEDS: THIAMINE HCL 100 MG TABLET (FP) PO SCH (21:07)
[2023-09-29] MEDS: LACTULOSE 20 GM/30 ML UDC (FOR ORAL USE ONLY) PO SCH ×3 (06:28→21:00)
[2023-09-29] MEDS: NALTREXONE HCL 50 MG TABLET PO SCH (09:49)
[2023-09-29] MEDS: NICOTINE 14 MG/24 HOURS TOPICAL PATCH TD SCH (09:49)
[2023-09-29] MEDS: PRENATAL VITAMINS W/ FOLIC ACID TABLET (FP) PO SCH (09:49)
[2023-09-29] MEDS: THIAMINE HCL 100 MG TABLET (FP) PO SCH (21:00)
[2023-09-29] MEDS: MELATONIN 5 MG TABLETS PO SCH (21:00)
[2023-09-30] MEDS: LACTULOSE 20 GM/30 ML UDC (FOR ORAL USE ONLY) PO SCH ×3 (06:04→21:07)
[2023-09-30] MEDS: PRENATAL VITAMINS W/ FOLIC ACID TABLET (FP) PO SCH (10:21)
[2023-09-30] MEDS: NICOTINE 14 MG/24 HOURS TOPICAL PATCH TD SCH (10:21)
[2023-09-30] MEDS: NALTREXONE HCL 50 MG TABLET PO SCH (10:22)
[2023-09-30] MEDS: THIAMINE HCL 100 MG TABLET (FP) PO SCH (21:07)
[2023-09-30] MEDS: MELATONIN 5 MG TABLETS PO SCH (21:08)
[2023-10-01] MEDS: LACTULOSE 20 GM/30 ML UDC (FOR ORAL USE ONLY) PO SCH (06:40)
[2023-10-01 07:39] VITALS: BP 114/76; PULSE 100; RESP 17; TEMP 97.1
[2023-10-07] MEDS ORDERED: NALTREXONE MICROSPHERES (VIVITROL) 380 MG DISP.SYRIN IM ONE (10:00)
== END 2023-10-01 09:24 | disposition home or self-care (01) | DRG 772 ==
LOC: YASAS 11:41 → Y3W 11:45
PROVIDERS: ADMIT Allergy & Immunology; ATTEND Psychiatry & Neurology Pain Medicine
PROC: HZ42ZZZ Group Counseling for Substance Abuse Treatment, Cognitive-Behavioral (ICD-10-PCS; principal; 2023-09-24)
DX: F10.20 Alcohol dependence, uncomplicated (principal); F13.20 Sedative, hypnotic or anxiolytic dependence, uncomplicated; F17.210 Nicotine dependence, cigarettes, uncomplicated; F32.A Depression, unspecified
CPT/HCPCS: 36415; 82140; 82652; 83735; 86803